=== PATIENT | female | born 1975 | race African-American/Black ===

== ENCOUNTER 2019-01-28 18:21 | Emergency (ER) | payer OTHER ==
[~2019-01-28] VITALS: Ht 167.6 cm; Wt 67.1 kg
[2019-01-28] MEDS ORDERED: HYDR200T81 PO (18:32)
[2019-01-28] MEDS ORDERED: ASPIRIN 81 MG TAB.CHEW ONE (18:44)
[2019-01-28] MEDS ORDERED: ASPIRIN 81 MG TAB.CHEW PO ONE (18:45)
[2019-01-28] MEDS ORDERED: NITROGLYCERIN OINT 1 GM PACKET TP ONE ×2 (18:45)
--- NOTE | 2019-01-28 18:49 | NUR ---
PT IS IN ROOM #1A. DR PIZANO EVALUATED THE PT.
[2019-01-28 19:18] LABS: BASOPHILS # (AUTO) 0.1 K/uL (0.0-8.0); BASOPHILS % (AUTO) 2.6 % (0.0-2.0); EOSINOPHILS # (AUTO) 0.2 K/uL (0.0-0.7); EOSINOPHILS % (AUTO) 2.8 % (0.0-7.0); HEMATOCRIT 35.2 % (31.2-41.9); HEMOGLOBIN 11.9 g/dL (10.9-14.3); LYMPHOCYTES # (AUTO) 2.8 K/uL (20.0-40.0); LYMPHOCYTES % (AUTO) 52.6 % (20.5-51.5); MEAN CORPUSCULAR HEMOGLOBIN 33.1 uug (24.7-32.8); MEAN CORPUSCULAR HGB CONC 34 g/dL (32.3-35.6); MEAN CORPUSCULAR VOLUME 98.3 fL (75.5-95.3); MONOCYTES # (AUTO) 0.5 K/uL (2.0-10.0); MONOCYTES % (AUTO) 9.6 % (0.0-11.0); NEUTROPHILS # (AUTO) 1.7 K/uL (1.8-8.9); NEUTROPHILS % (AUTO) 32.4 % (38.5-71.5); PLATELET COUNT (AUTO) 229 K/uL (179-408); RED BLOOD CELL COUNT(AUTO) 3.58 MIL/uL (3.63-4.92); WHITE BLOOD COUNT (AUTO) 5.4 K/uL (3.8-11.8)
[2019-01-28 19:30] LABS: CREATININE 0.8 mg/dL (0.6-1.3); POTASSIUM 3.6 mmol/L (3.5-5.1)
[2019-01-28 19:42] LABS: BILIRUBIN,DIRECT 0.1 mg/dL (0.0-0.2); BILIRUBIN,TOTAL 0.2 mg/dL (0.2-1.0)
[2019-01-28] MEDS ORDERED: ONDANSETRON ODT 4 MG TAB.RAPDIS ONE (19:58)
[2019-01-28] MEDS ORDERED: HYDROCODONE/APAP 5-325MG TABLET ONE (19:58)
[2019-01-28] MEDS ORDERED: ONDANSETRON ODT 4 MG TAB.RAPDIS SL ONE ×2 (20:00)
[2019-01-28] MEDS ORDERED: IBUPROFEN 400 MG TABLET PO ONE (20:00)
[2019-01-28] MEDS ORDERED: IBUPROFEN 400 MG TABLET ONE (20:01)
--- NOTE | 2019-01-28 20:11 | NUR ---
Patient discharged to home in stable conditon. Written and verbal after care instructions given. Patient verbalizes understanding of instructions. Pt ambulated out of ER with steady gait, no acute signs of distress, VSS, all belongings taken, IV site discontinued.
[2019-01-28 20:14] VITALS: BP 117/63
[2019-01-28] MEDS ORDERED: HYDROCODONE/APAP 5-325MG TABLET PO ONE (20:15)
== END 2019-01-28 20:18 | disposition home or self-care (01) ==
LOC: ER 18:25
DX: M94.0 Chondrocostal junction syndrome [Tietze] (principal); Z87.39 Personal history of other diseases of the musculoskeletal system and connective tissue; Z79.899 Other long term (current) drug therapy
CPT/HCPCS: 36415; 70030-TC; 71045; 85025; 93005; A4663; Q0162

== ENCOUNTER → 2021-10-17 | Emergency (ER) | payer BC, OTHER ==
[~2021-10-17] VITALS: Ht 167.6 cm; Wt 59.9 kg
[~2021-10-17] MED LIST: HYDR-4209 PO; HYDR200T81 PO; HYDROCODONE/APAP 10-325 MG TABLET ONE; MAG HYDROX/AL HYDROX/SIMETH 30 ML LIQUID UDC ONE; ONDA4TAB5 PO; ONDANSETRON ODT 4 MG TAB.RAPDIS ONE; PANTOPRAZOLE SODIUM 40 MG TABLET.DR PO ONE
--- NOTE | 2021-10-17 21:43 | NUR ---
Dr. Resendiz in room for DANIELE
[2021-10-17] MEDS: MAG HYDROX/AL HYDROX/SIMETH 30 ML LIQUID UDC PO ONE (22:09)
[2021-10-17] MEDS: HYDROCODONE/APAP 10-325 MG TABLET PO ONE (22:09)
[2021-10-17] MEDS: ONDANSETRON ODT 4 MG TAB.RAPDIS SL ONE (22:10)
[2021-10-17] MEDS: PANTOPRAZOLE SODIUM 40 MG TABLET.DR PO ONE (22:10)
[2021-10-17 22:19] LABS: HEMATOCRIT 36.6 % (31.2-41.9); MEAN CORPUSCULAR VOLUME 99.2 fL (75.5-95.3); PLATELET COUNT (AUTO) 209 K/uL (179-408)
[2021-10-17 22:28] LABS: CREATININE 0.9 mg/dL (0.6-1.3); POTASSIUM 4.1 mmol/L (3.5-5.1)
[2021-10-17 22:46] LABS: BILIRUBIN,DIRECT 0.1 mg/dL (0.0-0.2); BILIRUBIN,TOTAL 0.4 mg/dL (0.2-1.0)
--- NOTE | 2021-10-17 22:57 | NUR ---
Patient discharged to home in stable condition. Written and verbal after care instructions given. Patient verbalizes understanding of instructions. Stressed follow up or return to ER for worsening s/s. pt amb without assist, no c/o dizziness or sob.
[2021-10-17 22:59] VITALS: BP 135/68
== END | disposition home or self-care (01) ==
LOC: ER 21:55
DX: M94.0 Chondrocostal junction syndrome [Tietze] (principal); R09.1 Pleurisy; Z87.39 Personal history of other diseases of the musculoskeletal system and connective tissue; I10 Essential (primary) hypertension; Z91.013 Allergy to seafood; Z79.899 Other long term (current) drug therapy
CPT/HCPCS: 36415; 70030-TC; 71045; 85025; 93005; A4663; Q0162